=== PATIENT | male | born 1995 | race Caucasian/White ===

== ENCOUNTER 2023-01-20 15:37 | Emergency (ER) | payer BC, OTHER ==
[2023-01-20 15:54] VITALS: TEMP 98.5
--- NOTE | 2023-01-20 16:20 | ED ---
Overdose HPI - General Source: patient, RN notes reviewed Mode of arrival: EMS Limitations: no limitations <Alejandro Galindo - Last Filed: 01/20/23 16:19> <Krissy Cain - Last Filed: 01/26/23 14:47> - General Chief Complaint: Overdose Stated Complaint: Overdose Time Seen by Provider: 01/20/23 16:19 - History of Present Illness Initial Comments: 27-year-old male presents emergency Department via EMS from [place] for evaluation of methamphetamine ingestion. Patient reportedly swallowed 2 g of [address]amp[address] on his way to [facility] today. Patient states his happened at 9:15 this morning. Patient states that he feels slightly happened is no other complaints. Denies been suicidal. (Alejandro Galindo) 27-year-old male past medical history of methamphetamine abuse [facility] overdose. Reports that his friend was driving him to [facility] this morning for rehab. He was clean for 30 days. Upon driving to the facility, they were pulled over by [employer]. He reports that his friend had 1-2 g of meth on him and he swallowed it because he knew that if police found it, he would get in trouble too. He states that it was in rock form. He denies being suicidal or wanting to harm himself. Episode happened around 9:30 this morning. Police ended up letting him go. When he got to [facility] he notes to them that he had swallowed the meth. They transported him to the hospital for medical clearance. He denies using any other substa nces. No alcohol use. No other alleviating, precipitating or modifying factors (Krissy Cain) - Related Data Home Medications Medication Instructions Recorded Confirmed No Known Home Medications 01/20/23 01/20/23 Allergies Allergy/AdvReac Type Severity Reaction Status Date / Time No Known Allergies Allergy Verified 01/20/23 16:46 Review of Systems ROS Other: All systems not noted in ROS Statement are negative. <Alejandro Galindo - Last Filed: 01/20/23 16:19> ROS Other: All systems not noted in ROS Statement are negative. <Krissy Cain - Last Filed: 01/26/23 14:47> ROS Statement: Those systems with pertinent positive or pertinent negative responses have been documented in the HPI. Past Medical History Past Medical History: No Reported History Past Surgical History: No Surgical Hx Reported Past Psychological History: No Psychological Hx Reported Smoking Status: Current every day smoker Past Alcohol Use History: Abuse Past Drug Use History: Methamphetamine <Alejandro Galindo - Last Filed: 01/20/23 16:19> General Exam Limitations: no limitations <Alejandro Galindo - Last Filed: 01/20/23 16:19> General appearance: alert, in no apparent distress Head exam: Present: atraumatic, normocephalic, normal inspection Eye exam: Present: normal appearance, PERRL, EOMI. Absent: scleral icterus, conjunctival injection, periorbital swelling ENT exam: Present: normal exam, mucous membranes moist Neck exam: Present: normal inspection. Absent: tenderness, meningismus, lymphadenopathy Respiratory exam: Present: normal lung sounds bilaterally. Absent: respiratory distress, wheezes, rales, rhonchi, stridor Cardiovascular Exam: Present: normal rhythm, tachycardia, normal heart sounds. Absent: systolic murmur, diastolic murmur, rubs, gallop, clicks GI/Abdominal exam: Present: soft, normal bowel sounds. Absent: distended, tenderness, guarding, rebound, rigid Extremities exam: Present: normal inspection, full ROM, normal capillary refill. Absent: tenderness, pedal edema, joint swelling, calf tenderness Back exam: Present: normal inspection Neurological exam: Present: alert, oriented X3, CN II-XII intact Psychiatric exam: Present: normal affect, normal mood Skin exam: Present: warm, dry, intact, normal color. Absent: rash <Krissy Cain - Last Filed: 01/26/23 14:47> Course <Krissy Cain - Last Filed: 01/26/23 14:47> Vital Signs 01/20/23 01/20/23 01/20/23 15:50 17:00 17:52 Temperature 98.5 F Pulse Rate 145 H 118 H 122 H Respiratory 20 18 18 Rate Blood Pressure 141/83 128/70 133/78 O2 Sat by Pulse 97 97 97 Oximetry 01/20/23 19:15 Temperature Pulse Rate 120 H Respiratory 18 Rate Blood Pressure 124/68 O2 Sat by Pulse 99 Oximetry - Reevaluation(s) Reevaluation #1: Called in to poison control - recommend 6 hour observation 01/20/23 17:03 (Krissy aCin) Medical Decision Making - Lab Data Result diagrams: 01/20/23 16:45 01/20/23 16:45 <Krissy Cain - Last Filed: 01/26/23 14:47> - Medical Decision Making Was pt. sent in by a medical professional or institution ([facility], [employer], urgent care, hospital, or halfway...) When possible be specific @ -[facility] Did you speak to anyone other than the patient for history (EMS, parent, family, police, friend...)? What history was obtained from this source @ -EMS Did you review nursing and triage notes (agree or disagree)? Why? @ -I reviewed and agree with nursing and triage notes Were old charts reviewed (outside hosp., previous admission, EMS record, old EKG, old radiological studies, urgent care reports/EKG's, halfway records)? Report findings @ -paperwork from [facility] reviewed Differential Diagnosis (chest pain, altered mental status, abdominal pain women, abdominal pain men, vaginal bleeding, weakness, fever, dyspnea, syncope, headache, dizziness, GI bleed, back pain, seizure, CVA, palpatations, mental health, musculoskeletal)? @ -meth use, cocaine use, svt, acs EKG interpreted by me (3pts min.). @ -As above X-rays interpreted by me (1pt min.). @ -Not done CT interpreted by me (1pt min.). @ -None done U/S interpreted by me (1pt. min.). @ -None done What testing was considered but not performed or refused? (CT, X-rays, U/S, la bs)? Why? @ -None What meds were considered but not given or refused? Why? @ -None Did you discuss the management of the patient with other professionals (professionals i.e. [facility] Echavarria, [employer], lab, RT, psych nurse, community mental health social worker, radiographic technologist, teacher, quality officer, case coordinator)? Give summary @ -Poison control Was smoking cessation discussed for >3mins.? @ -yes Was critical care preformed (if so, how long)? @ -No Were there social determinants of health that impacted care today? How? (Homelessness, low income, unemployed, alcoholism, drug addiction, transportation, low edu. Level, literacy, decrease access to med. care, half-way, rehab)? @ -patient comes from rehab Was there de-escalation of care discussed even if they declined (Discuss DNR or withdrawal of care, Hospice)? DNR status @ -No What co-morbidities impacted this encounter? (DM, HTN, Smoking, COPD, CAD, Cancer, CVA, ARF, Chemo, Hep., AIDS, mental health diagnosis, sleep apnea, morbid obesity)? @ -None Was patient admitted / discharged? Hospital course, mention meds given and route, prescriptions, significant lab abnormalities, going to OR and other pertinent info. @ -Upon arrival patient was placed into room 3. A thorough history and physical exam was performed. Poison control was contacted. Recommended 6 hours of observation. Patient is observed for 4 hours with no complaints. He is found resting asleep in the room. Patient asymptomatic and will be discharged back to [facility] at this time. Undiagnosed new problem with uncertain prognosis? @ -No Drug Therapy requiring intensive monitoring for toxicity (Heparin, Nitro, Insulin, Cardizem)? @ -No Were any procedures done? @ -No Diagnosis/symptom? @ -acute methamphetamine injection Acute, or Chronic, or Acute on Chronic? @ -acute Uncomplicated (without systemic symptoms) or Complicated (systemic symptoms)? @ -complicated Side effects of treatment? @ -Sedation Exacerbation, Progression, or Severe Exacerbation? @ -No Poses a threat to life or bodily function? How? (Chest pain, [place], [place], pneumonia, PE, COPD, DKA, ARF, appy, cholecystitis, CVA, Diverticulitis, Homicidal, Suicidal, threat to staff... and all critical care pts) @ -yes (Krissy Cain) - Lab Data Lab Results 01/20/23 01/20/23 01/20/23 Range/Units 16:45 16:45 16:45 WBC 12.9 H (3.8-10.6) k/uL RBC 5.19 (4.30-5.90) m/uL Hgb 15.3 (13.0-17.5) gm/dL Hct 46.1 (39.0-53.0) % MCV 88.8 (80.0-100.0) fL MCH 29.6 (25.0-35.0) pg MCHC 33.3 (31.0-37.0) g/dL RDW 12.0 (11.5-15.5) % Plt Count 221 (150-450) k/uL MPV 9.0 Neutrophils % 82 % Lymphocytes % 13 % Monocytes % 3 % Eosinophils % 0 % Basophils % 0 % Neutrophils # 10.6 H (1.3-7.7) k/uL Lymphocytes # 1.7 (1.0-4.8) k/uL Monocytes # 0.4 (0-1.0) k/uL Eosinophils # 0.0 (0-0.7) k/uL Basophils # 0.1 (0-0.2) k/uL Sodium 138 (137-145) mmol/L Potassium 4.8 (3.5-5.1) mmol/L Chloride 103 (98-107) mmol/L Carbon Dioxide 25 (22-30) mmol/L Anion Gap 10 mmol/L BUN 15 (9-20) mg/dL Creatinine 0.84 (0.66-1.25) mg/dL Est GFR (CKD-EPI)AfAm >90 (>60 ml/min/1.73 sqM) Est GFR (CKD-EPI)NonAf >90 (>60 ml/min/1.73 sqM) Glucose 89 (74-99) mg/dL Calcium 9.3 (8.4-10.2) mg/dL Total Bilirubin 0.7 (0.2-1.3) mg/dL AST 35 (17-59) U/L ALT 75 H (4-49) U/L Alkaline Phosphatase 61 (38-126) U/L Troponin I <0.012 (0.000-0.034) ng/mL Total Protein 7.8 (6.3-8.2) g/dL Albumin 4.7 (3.5-5.0) g/dL Salicylates <1.0 mg/dL Acetaminophen <10.0 ug/mL Serum Alcohol <10 mg/dL - EKG Data EKG Comments: EKG demonstrates sinus tachycardia with rate of 120. IN interval 132. QRS 90. QTC 364. No acute ST segment elevations or depressions (Krissy Cain) Disposition <Alejandro Galindo - Last Filed: 01/20/23 16:19> Is patient prescribed a controlled substance at d/c from ED?: No Time of Disposition: 19:03 <Krissy Cain - Last Filed: 01/26/23 14:47> Clinical Impression: Methamphetamine abuse Disposition: HOME SELF-CARE Condition: Stable Instructions (If sedation given, give patient instructions): Methamphetamine Abuse (ED) Additional Instructions: You will be discharged back to [facility] at this time. You have been medically cleared. Referrals: None,Stated [Primary Care Provider] - 1-2 days
[2023-01-20] MEDS ORDERED: SODIUM CHLORIDE 0.9% 2,000 ML IV STA (16:31)
[2023-01-20] MEDS ORDERED: LORazepam 2 MG/ML INJ IV STA ×2 (16:32→18:54)
[2023-01-20 17:05] LABS: Basophils # (A) 0.1 k/uL (0-0.2); Basophils % (A) 0 %; Eosinophils % (A) 0 %; HCT 46.1 % (39.0-53.0); HGB 15.3 gm/dL (13.0-17.5); Lymphocytes # (A) 1.7 k/uL (1.0-4.8); Lymphocytes % (A) 13 %; MCH 29.6 pg (25.0-35.0); MCHC 33.3 g/dL (31.0-37.0); MCV 88.8 fL (80.0-100.0); Monocytes # (A) 0.4 k/uL (0-1.0); Monocytes % (A) 3 %; Neutrophils # (A) 10.6 k/uL (1.3-7.7); Neutrophils % (A) 82 %; Platelet Count 221 k/uL (150-450); RBC 5.19 m/uL (4.30-5.90); WBC 12.9 k/uL (3.8-10.6)
[2023-01-20] MEDS ORDERED: NICOTINE 21MG/24HR PATCH TRANSDERM STA (17:39)
[2023-01-20 17:51] VITALS: RESP 18
[2023-01-20 17:55] LABS: ALT 75 U/L (4-49); AST 35 U/L (17-59); Acetaminophen <10.0 ug/mL; African American GFR (CKD) >90 (>60 ml/min/1.73 sqM); Albumin 4.7 g/dL (3.5-5.0); Alcohol <10 mg/dL; Alkaline Phosphatase 61 U/L (38-126); Anion Gap 10 mmol/L; Blood Urea Nitrogen 15 mg/dL (9-20); Calcium 9.3 mg/dL (8.4-10.2); Carbon Dioxide 25 mmol/L (22-30); Chloride 103 mmol/L (98-107); Glucose 89 mg/dL (74-99); Non-African American GFR(CKD) >90 (>60 ml/min/1.73 sqM); Potassium 4.8 mmol/L (3.5-5.1); Salicylate <1.0 mg/dL; Sodium 138 mmol/L (137-145); Total Bilirubin 0.7 mg/dL (0.2-1.3); Total Protein 7.8 g/dL (6.3-8.2)
[2023-01-20 19:59] VITALS: BP 124/68; PULSE 120
== END 2023-01-20 19:25 | disposition home or self-care (01) ==
LOC: EC 15:37
DX: T43.651A Poisoning by methamphetamines accidental (unintentional), initial encounter (principal); F17.200 Nicotine dependence, unspecified, uncomplicated
CPT/HCPCS: 36415; 93005; 80053; 84484; 85025; 80143; 80320; 80179; 99284; 96374; 96361 ×2; S4990; J2060